=== PATIENT | male | born 1995 | race Caucasian/White ===

== ENCOUNTER 2017-03-13 21:29 | Emergency (ER) | payer OTHER | END 2017-03-13 22:15 | disposition home or self-care (01) | LOC: ER 21:29 | DX: T15.02XA Foreign body in cornea, left eye, initial encounter (principal); F17.210 Nicotine dependence, cigarettes, uncomplicated; Z23 Encounter for immunization; X58.XXXA Exposure to other specified factors, initial encounter | CPT/HCPCS: 90471 ==